=== PATIENT | female | born 1975 | race Caucasian/White ===

== ENCOUNTER → 2017-05-18 | Outpatient (CLI) | payer SELFPAY ==
--- NOTE | 2017-05-18 15:20 | RAD ---
HISTORY: Left clavicular mass Study: 2 views of the clavicle the left shoulder. Comparison: None Findings: No acute fractures or dislocations. The glenohumeral articulation is normal in its appearance. No gr oss soft tissue abnormalities. The acromioclavicular joint is normal in appearance. IMPRESSION: 1. No acute abnormality of the clavicle the left shoulder. No bony mass identified. Reported By:
== END ==
LOC: RAD 14:12
PROVIDERS: ATTEND Emergency Medicine
DX: M19.019 Primary osteoarthritis, unspecified shoulder (principal); R22.1 Localized swelling, mass and lump, neck
CPT/HCPCS: 73000